=== PATIENT | male | born 1940 | race Caucasian/White ===

== ENCOUNTER 2023-04-02 14:00 | Emergency (ER) | payer OTHER ==
[2023-04-02] MEDS ORDERED: Ondansetron 4 MG/2 ML SDV IVPUSH ONE (15:08)
[2023-04-02] MEDS ORDERED: HYDROmorphone 0.5 MG/0.5 ML Syringe IVPUSH ONE ×2 (15:08→21:44)
[2023-04-02] MEDS ORDERED: Sodium Chloride 0.9% 1,000 ML IV ONE (15:08)
[2023-04-02 16:17] LABS: BASOPHILS PERCENT AUTO 0.2 % (0.0-1.0); HEMATOCRIT 40.4 % (42.0-52.0); HEMOGLOBIN 13.5 gm/dl (14.0-18.0); IMMATURE GRAN ABSOLUTE AUTO 0.12 K/mm3 (0.00-0.05); IMMATURE GRAN PERCENT AUTO 0.6 % (0.0-0.4); LYMPHOCYTES ABSOLUTE AUTO 0.7 K/mm3 (1.0-4.8); LYMPHOCYTES PERCENT AUTO 3.4 % (24.0-44.0); MEAN CORPUSCULAR HEMOGLOBIN 29.2 pg (28.0-32.0); MEAN CORPUSCULAR HGB CONC 33.4 g/dl (32.0-36.0); MEAN CORPUSCULAR VOLUME 87.3 fl (83.0-99.0); MEAN PLATELET VOLUME 10.9 fl (9.4-12.4); MONOCYTES ABSOLUTE AUTO 1.1 K/mm3 (0.0-0.8); MONOCYTES PERCENT AUTO 5.5 % (0.0-8.0); NEUTROPHILS ABSOLUTE AUTO 18.1 K/mm3 (1.8-7.7); NEUTROPHILS PERCENT AUTO 90.3 % (41.0-71.0); PLATELET COUNT,PLT 208 K/mm3 (150-400); RED BLOOD CELL COUNT 4.63 M/mm3 (4.52-5.90); WHITE BLOOD CELL COUNT,WBC 20.01 K/mm3 (3.9-11.3)
[2023-04-02 16:39] LABS: A/G RATIO 0.9 (1-2); ALBUMIN 3.6 g/dl (3.4-5.0); ANION GAP 19.3 (5-15); BUN/CREATININE RATIO 18.3 (14-18); C-REACTIVE PROTEIN 1.7 mg/dL (<1.0); CALCIUM 9.2 mg/dL (8.5-10.1); CREATININE 1.8 mg/dL (0.7-1.3); EST CRCL DRUG DOSING (CG) 30.61 mL/min; POTASSIUM,K 4.3 mEq/L (3.5-5.1); PROTEIN TOTAL,TP 7.5 g/dl (6.4-8.2)
[2023-04-02 18:08] LABS: APPEARANCE,URINE SLT CLOUDY (Clear); BILIRUBIN,URINE NEGATIVE (Negative); COLOR,URINE YELLOW (Yellow); GLUCOSE,URINE NEGATIVE (Negative); KETONES,URINE NEGATIVE (Negative); LEUKOCYTE ESTERASE,URINE TRACE (Negative); NITRITE,URINE NEGATIVE (Negative); OCCULT BLOOD,URINE 1+ (Negative); PROTEIN,URINE 3+ (Negative); UROBILINOGEN,URINE 0.2 (0.2-1.0)
[2023-04-02 18:15] LABS: WBC,URINE 20-30 /hpf (0-5)
[2023-04-02 18:16] LABS: BACTERIA,URINE MANY /hpf (FEW); MUCUS,URINE FEW /hpf (FEW)
[2023-04-02] MEDS ORDERED: Iopamidol 612 MG/ML 100 ML Bottle IVPUSH ONE (20:47)
[2023-04-02] MEDS ORDERED: Sodium Chloride 0.9% 10 ML Syringe FLUSH ONE (20:47)
== END 2023-04-02 22:30 ==
LOC: JD.ED 14:00
DX: N20.2 Calculus of kidney with calculus of ureter (principal); I10 Essential (primary) hypertension; E78.00 Pure hypercholesterolemia, unspecified; M10.9 Gout, unspecified; E11.9 Type 2 diabetes mellitus without complications; E03.9 Hypothyroidism, unspecified; Z79.899 Other long term (current) drug therapy; Z79.82 Long term (current) use of aspirin
CPT/HCPCS: 36415; 74177; 80053; 81001; 85025; 86140; 87086; 87088; 87186; 96361; 96374; 96375; 96376; 99285; J1170; J2405; J7030

== ENCOUNTER 2024-09-01 12:30 | Inpatient (IN) | payer MEDICARE, OTHER ==
[2024-09-01] MEDS ORDERED: Sodium Chloride 0.9% 10 ML Syringe FLUSH PRN (13:02)
[2024-09-01 14:13] LABS: HEMATOCRIT 43.7 % (42.0-52.0); HEMOGLOBIN 14.5 gm/dl (14.0-18.0); MEAN CORPUSCULAR HGB CONC 33.2 g/dl (32.0-36.0); MEAN PLATELET VOLUME 11.9 fl (9.4-12.4); RED BLOOD CELL COUNT 4.84 M/mm3 (4.52-5.90); WHITE BLOOD CELL COUNT,WBC 13.15 K/mm3 (3.9-11.3)
[2024-09-01 14:14] LABS: MEAN CORPUSCULAR VOLUME 90.3 fl (83.0-99.0); PLATELET COUNT,PLT 296 K/mm3 (150-400)
[2024-09-01] MEDS: HYDROmorphone 0.5 MG/0.5 ML Syringe IVPUSH ONE ×3 (14:34→16:46)
[2024-09-01 14:36] LABS: INR 2.22; PROTHROMBIN TIME 22.3 SECONDS (9.7-12.0)
[2024-09-01 14:39] LABS: A/G RATIO 0.8 (1-2); ALANINE AMINOTRANSFERASE,ALT 19 U/L (16-63); ALBUMIN 2.9 g/dl (3.4-5.0); ALKALINE PHOSPHATASE 112 U/L (46-116); ANION GAP 21.1 (5-15); ASPARTATE AMNIOTRANSFERASE,AST 20 U/L (15-37); BAND PERCENT MAN 0 % (0-10); BASOPHILS PERCENT MAN 0 (0.2-1.2); BILIRUBIN TOTAL 0.3 mg/dL (0.2-1.0); BLOOD UREA NITROGEN,BUN 133 mg/dL (7-18); BUN/CREATININE RATIO 44.3 (14-18); C-REACTIVE PROTEIN 1.39 mg/dL (<0.30); CALCIUM 8.9 mg/dL (8.5-10.1); CARBON DIOXIDE,CO2 17 mEq/L (21-32); CHLORIDE,CL 107 mEq/L (98-107); EOSINOPHILS PERCENT MAN 1 % (0.8-7.0); ESTIMATED GFR 20 mL/min (>60); GLUCOSE RANDOM 109 mg/dL (70-99); LYMPHOCYTES % ATYPICAL MANUAL 0 %; LYMPHOCYTES PERCENT MAN 15 % (20-40); MONOCYTES PERCENT MAN 8 % (2-10); POTASSIUM,K 4.1 mEq/L (3.5-5.1); PROTEIN TOTAL,TP 6.7 g/dl (6.4-8.2); SODIUM,NA 141 mEq/L (136-145); URIC ACID 13.6 mg/dL (3.5-7.2)
[2024-09-01 14:40] LABS: LACTIC ACID 1.2 mmol/L (0.4-2.0); PLATELET COUNT ESTIMATE ADEQUATE
[2024-09-01] MEDS: Lactated Ringers 1,000 ML IV ONE (15:41)
[2024-09-01 15:43] LABS: APPEARANCE,URINE CLEAR (Clear); BILIRUBIN,URINE 1+ (Negative); COLOR,URINE YELLOW (Yellow); GLUCOSE,URINE NEGATIVE (Negative); KETONES,URINE NEGATIVE (Negative); LEUKOCYTE ESTERASE,URINE TRACE (Negative); NITRITE,URINE NEGATIVE (Negative); OCCULT BLOOD,URINE NEGATIVE (Negative); PH,URINE 5.5 (5.0-8.0); PROTEIN,URINE 1+ (Negative); UROBILINOGEN,URINE 0.2 (0.2-1.0)
[2024-09-01 15:53] LABS: BACTERIA,URINE MANY /hpf (FEW); MUCUS,URINE FEW /hpf (FEW); RBC,URINE 0-5 /hpf (0-5); SQUAMOUS EPITHELIAL CELLS,UR 0-5 /hpf (0-5); WBC,URINE 0-5 /hpf (0-5)
[2024-09-01] MEDS: fentaNYL 100 MCG/2 ML SDV IVPUSH ONE (18:48)
[2024-09-01] MEDS ORDERED: Ondansetron 4 MG Tab.DIS PO PRN (20:09)
[2024-09-01] MEDS ORDERED: Morphine 2 MG/ML SYRINGE IVPUSH PRN (20:09)
[2024-09-01] MEDS ORDERED: Sennosides/Docusate Sodium 50-8.6 MG Tab PO PRN (20:09)
[2024-09-01] MEDS ORDERED: Naloxone 0.4 MG/ML SDV IVPUSH PRN (20:09)
[2024-09-01] MEDS ORDERED: 50% Dextrose in Water 50 ML Syringe IVPUSH PRN (20:14)
[2024-09-01] MEDS: Heparin Sodium 5,000 Units/ML Vial SUBCUT SCH (20:46)
[2024-09-01] MEDS: Lactated Ringers 1,000 ML IV SCH (20:46)
[2024-09-01] MEDS: oxyCODONE 5 MG Tab PO PRN (22:41)
[2024-09-01] MEDS: atorvaSTATin 20 MG Tab PO SCH (22:44)
[2024-09-01] MEDS: fentaNYL 12 MCG/HR Transdermal Patch TRDERM SCH (22:50)
[2024-09-01] MEDS: Triamcinolone Acetonide 0.1% Crm 15 GM Tube TOP SCH (23:44)
[2024-09-01] MEDS: Insulin Lispro 100 Unit/ML 3 ML KwikPen SUBCUT SCH (23:45)
[2024-09-02] MEDS: Levothyroxine 50 MCG Tab PO SCH (04:52)
[2024-09-02 05:57] LABS: BASOPHILS PERCENT AUTO 0.4 % (0.0-1.0); EOSINOPHILS ABSOLUTE AUTO 0.2 K/mm3 (0.0-0.4); EOSINOPHILS PERCENT AUTO 2.1 % (0.0-6.0); HEMATOCRIT 40.2 % (42.0-52.0); HEMOGLOBIN 13.5 gm/dl (14.0-18.0); IMMATURE GRAN ABSOLUTE AUTO 0.04 K/mm3 (0.00-0.05); IMMATURE GRAN PERCENT AUTO 0.4 % (0.0-0.4); LYMPHOCYTES ABSOLUTE AUTO 1.6 K/mm3 (1.0-4.8); MEAN CORPUSCULAR HEMOGLOBIN 30.4 pg (28.0-32.0); MEAN CORPUSCULAR HGB CONC 33.6 g/dl (32.0-36.0); MEAN CORPUSCULAR VOLUME 90.5 fl (83.0-99.0); MEAN PLATELET VOLUME 12.4 fl (9.4-12.4); MONOCYTES ABSOLUTE AUTO 0.7 K/mm3 (0.0-0.8); MONOCYTES PERCENT AUTO 8.1 % (0.0-8.0); NEUTROPHILS ABSOLUTE AUTO 6.5 K/mm3 (1.8-7.7); RED BLOOD CELL COUNT 4.44 M/mm3 (4.52-5.90); WHITE BLOOD CELL COUNT,WBC 9.13 K/mm3 (3.9-11.3)
[2024-09-02 06:03] LABS: PLATELET COUNT,PLT 199 K/mm3 (150-400)
[2024-09-02 07:01] LABS: A/G RATIO 0.7 (1-2); ALBUMIN 2.5 g/dl (3.4-5.0); BILIRUBIN TOTAL 0.4 mg/dL (0.2-1.0); BUN/CREATININE RATIO 53.8 (14-18); C-REACTIVE PROTEIN 1.12 mg/dL (<0.30); CALCIUM 8.8 mg/dL (8.5-10.1); CREATININE 2.1 mg/dL (0.7-1.3); EST CRCL DRUG DOSING (CG) 26.65 mL/min; MAGNESIUM 1.8 mg/dL (1.8-2.4); PHOSPHORUS 3.3 mg/dL (2.6-4.7); PROTEIN TOTAL,TP 5.9 g/dl (6.4-8.2)
[2024-09-02] MEDS: Folic Acid 1 MG Tab PO SCH (08:45)
[2024-09-02] MEDS: Sertraline 50 MG Tab PO SCH (08:45)
[2024-09-02] MEDS: Aspirin 81 MG Tab.EC PO SCH (08:45)
[2024-09-02] MEDS: Isosorbide Mononitrate 30 MG Tab.ER PO SCH (08:45)
[2024-09-02] MEDS: Cholecalciferol (Vitamin D3) 25 MCG Tab PO SCH (08:45)
[2024-09-02] MEDS: Ferrous Sulfate 324 MG Tab.EC PO SCH (08:45)
[2024-09-02] MEDS: Empagliflozin 10 MG Tab PO SCH (08:45)
[2024-09-02] MEDS ORDERED: Morphine 2 MG/ML SYRINGE IVPUSH PRN (09:15)
[2024-09-02] MEDS ORDERED: Labetalol 100 MG/20 ML MDV IVPUSH PRN (09:30)
[2024-09-02] MEDS: Acetaminophen 325 MG Tab PO PRN (09:30)
[2024-09-02] MEDS ORDERED: hydrALAZINE 20 MG/ML SDV IVPUSH PRN (09:30)
[2024-09-02] MEDS: Magnesium Sulfat/D5W 1GM/100ML 1 GM in Premix Bag 1 BAG IV ONE (09:42)
[2024-09-02] MEDS: predniSONE 10 MG Tab PO ONE (09:43)
[2024-09-02 09:58] LABS: TSH 2.132 uIU/mL (0.358-3.74)
[2024-09-02] MEDS: Dextrose 5%-0.45% NaCl 1,000 ML IV SCH (10:54)
[2024-09-02] MEDS: Doxycycline Monohydrate 100 MG Cap PO SCH (11:00)
[2024-09-02] MEDS: Amoxicillin/Clavulanate K 500-125 MG Tab PO SCH (11:00)
[2024-09-02] MEDS: Melatonin 3 MG Tab PO PRN (20:03)
[2024-09-03 05:27] LABS: BASOPHILS PERCENT AUTO 0.2 % (0.0-1.0); EOSINOPHILS PERCENT AUTO 0.1 % (0.0-6.0); HEMATOCRIT 40.4 % (42.0-52.0); HEMOGLOBIN 13.6 gm/dl (14.0-18.0); IMMATURE GRAN ABSOLUTE AUTO 0.07 K/mm3 (0.00-0.05); IMMATURE GRAN PERCENT AUTO 0.7 % (0.0-0.4); LYMPHOCYTES PERCENT AUTO 9.9 % (24.0-44.0); MEAN CORPUSCULAR HEMOGLOBIN 30.3 pg (28.0-32.0); MEAN CORPUSCULAR HGB CONC 33.7 g/dl (32.0-36.0); MEAN PLATELET VOLUME 11.5 fl (9.4-12.4); MONOCYTES ABSOLUTE AUTO 0.8 K/mm3 (0.0-0.8); MONOCYTES PERCENT AUTO 7.9 % (0.0-8.0); NEUTROPHILS PERCENT AUTO 81.2 % (41.0-71.0); PLATELET COUNT,PLT 213 K/mm3 (150-400); RED BLOOD CELL COUNT 4.49 M/mm3 (4.52-5.90); WHITE BLOOD CELL COUNT,WBC 9.86 K/mm3 (3.9-11.3)
[2024-09-03 05:48] LABS: ANION GAP 15.8 (5-15); BUN/CREATININE RATIO 52.9 (14-18); C-REACTIVE PROTEIN 1.44 mg/dL (<0.30); CALCIUM 9.1 mg/dL (8.5-10.1); CREATININE 1.4 mg/dL (0.7-1.3); EST CRCL DRUG DOSING (CG) 39.98 mL/min; MAGNESIUM 1.9 mg/dL (1.8-2.4); POTASSIUM,K 3.8 mEq/L (3.5-5.1)
[2024-09-03] MEDS: predniSONE 20 MG Tab PO SCH (09:08)
[2024-09-03] MEDS: Magnesium Sulfat/D5W 1GM/100ML 1 GM in Premix Bag 1 BAG IV ONE (11:39)
[2024-09-03] MEDS: D5 1/2 NS w/ 20 mEq/L KCl 1,000 ML IV SCH (13:00)
[2024-09-03] MEDS: Amoxicillin/Clavulanate K 875-125 MG Tab PO SCH (20:05)
[2024-09-04 09:42] LABS: BASOPHILS PERCENT AUTO 0.1 % (0.0-1.0); EOSINOPHILS PERCENT AUTO 0.5 % (0.0-6.0); HEMATOCRIT 40.6 % (42.0-52.0); HEMOGLOBIN 13.7 gm/dl (14.0-18.0); IMMATURE GRAN ABSOLUTE AUTO 0.12 K/mm3 (0.00-0.05); IMMATURE GRAN PERCENT AUTO 1.4 % (0.0-0.4); LYMPHOCYTES ABSOLUTE AUTO 0.7 K/mm3 (1.0-4.8); LYMPHOCYTES PERCENT AUTO 8.3 % (24.0-44.0); MEAN CORPUSCULAR HEMOGLOBIN 30.3 pg (28.0-32.0); MEAN CORPUSCULAR HGB CONC 33.7 g/dl (32.0-36.0); MEAN CORPUSCULAR VOLUME 89.8 fl (83.0-99.0); MEAN PLATELET VOLUME 11.2 fl (9.4-12.4); MONOCYTES ABSOLUTE AUTO 0.3 K/mm3 (0.0-0.8); MONOCYTES PERCENT AUTO 3.6 % (0.0-8.0); NEUTROPHILS ABSOLUTE AUTO 7.5 K/mm3 (1.8-7.7); NEUTROPHILS PERCENT AUTO 86.1 % (41.0-71.0); PLATELET COUNT,PLT 172 K/mm3 (150-400); RED BLOOD CELL COUNT 4.52 M/mm3 (4.52-5.90); WHITE BLOOD CELL COUNT,WBC 8.72 K/mm3 (3.9-11.3)
[2024-09-04] MEDS: Enoxaparin 40 MG/0.4 ML Syringe SUBCUT SCH (10:01)
[2024-09-04 10:16] LABS: A/G RATIO 0.8 (1-2); ALBUMIN 2.8 g/dl (3.4-5.0); ANION GAP 14.3 (5-15); BILIRUBIN TOTAL 0.5 mg/dL (0.2-1.0); BUN/CREATININE RATIO 36.9 (14-18); C-REACTIVE PROTEIN 0.68 mg/dL (<0.30); CREATININE 1.3 mg/dL (0.7-1.3); EST CRCL DRUG DOSING (CG) 43.05 mL/min; MAGNESIUM 1.9 mg/dL (1.8-2.4); POTASSIUM,K 4.3 mEq/L (3.5-5.1); PROTEIN TOTAL,TP 6.4 g/dl (6.4-8.2)
[2024-09-04] MEDS: Morphine 2 MG/ML SYRINGE IVPUSH ONE (11:00)
[2024-09-04] MEDS: Morphine 2 MG/ML SYRINGE ONE (11:27)
[2024-09-04] MEDS: fentaNYL 25 MCG/HR Transdermal Patch TRDERM SCH (12:58)
[2024-09-04] MEDS: Morphine 2 MG/ML SYRINGE IVPUSH PRN (12:59)
[2024-09-05 04:34] LABS: BASOPHILS PERCENT AUTO 0.3 % (0.0-1.0); EOSINOPHILS ABSOLUTE AUTO 0.1 K/mm3 (0.0-0.4); EOSINOPHILS PERCENT AUTO 0.8 % (0.0-6.0); HEMATOCRIT 39.6 % (42.0-52.0); HEMOGLOBIN 13.1 gm/dl (14.0-18.0); IMMATURE GRAN PERCENT AUTO 1.9 % (0.0-0.4); LYMPHOCYTES ABSOLUTE AUTO 1.9 K/mm3 (1.0-4.8); LYMPHOCYTES PERCENT AUTO 18.8 % (24.0-44.0); MEAN CORPUSCULAR HEMOGLOBIN 30.3 pg (28.0-32.0); MEAN CORPUSCULAR HGB CONC 33.1 g/dl (32.0-36.0); MEAN CORPUSCULAR VOLUME 91.5 fl (83.0-99.0); MEAN PLATELET VOLUME 11.9 fl (9.4-12.4); MONOCYTES ABSOLUTE AUTO 0.7 K/mm3 (0.0-0.8); NEUTROPHILS ABSOLUTE AUTO 7.3 K/mm3 (1.8-7.7); NEUTROPHILS PERCENT AUTO 71.2 % (41.0-71.0); PLATELET COUNT,PLT 173 K/mm3 (150-400); RED BLOOD CELL COUNT 4.33 M/mm3 (4.52-5.90); WHITE BLOOD CELL COUNT,WBC 10.26 K/mm3 (3.9-11.3)
[2024-09-05 04:57] LABS: ANION GAP 12.9 (5-15); BUN/CREATININE RATIO 29.2 (14-18); C-REACTIVE PROTEIN 0.3 mg/dL (<0.30); CALCIUM 8.7 mg/dL (8.5-10.1); CREATININE 1.3 mg/dL (0.7-1.3); EST CRCL DRUG DOSING (CG) 43.05 mL/min; MAGNESIUM 1.7 mg/dL (1.8-2.4); POTASSIUM,K 3.9 mEq/L (3.5-5.1)
[2024-09-05] MEDS: Magnesium Sulf/Wat 2 GM/50 mL 2 GM in Premix Bag 1 BAG IV ONE (08:33)
[2024-09-05] MEDS: Ondansetron 4 MG/2 ML SDV IV PRN (10:38)
[2024-09-06 04:58] LABS: BASOPHILS PERCENT AUTO 0.2 % (0.0-1.0); EOSINOPHILS ABSOLUTE AUTO 0.1 K/mm3 (0.0-0.4); EOSINOPHILS PERCENT AUTO 0.4 % (0.0-6.0); HEMATOCRIT 38.8 % (42.0-52.0); HEMOGLOBIN 12.8 gm/dl (14.0-18.0); IMMATURE GRAN PERCENT AUTO 2.3 % (0.0-0.4); LYMPHOCYTES ABSOLUTE AUTO 1.7 K/mm3 (1.0-4.8); LYMPHOCYTES PERCENT AUTO 13.2 % (24.0-44.0); MEAN CORPUSCULAR HEMOGLOBIN 29.9 pg (28.0-32.0); MEAN CORPUSCULAR VOLUME 90.7 fl (83.0-99.0); MEAN PLATELET VOLUME 11.8 fl (9.4-12.4); MONOCYTES ABSOLUTE AUTO 0.8 K/mm3 (0.0-0.8); MONOCYTES PERCENT AUTO 6.5 % (0.0-8.0); NEUTROPHILS PERCENT AUTO 77.4 % (41.0-71.0); PLATELET COUNT,PLT 166 K/mm3 (150-400); RED BLOOD CELL COUNT 4.28 M/mm3 (4.52-5.90); WHITE BLOOD CELL COUNT,WBC 12.86 K/mm3 (3.9-11.3)
[2024-09-06 05:25] LABS: ANION GAP 13.1 (5-15); BUN/CREATININE RATIO 23.1 (14-18); C-REACTIVE PROTEIN 0.27 mg/dL (<0.30); CALCIUM 8.6 mg/dL (8.5-10.1); CREATININE 1.3 mg/dL (0.7-1.3); EST CRCL DRUG DOSING (CG) 43.05 mL/min; MAGNESIUM 1.9 mg/dL (1.8-2.4); POTASSIUM,K 4.1 mEq/L (3.5-5.1)
== END 2024-09-06 10:15 | DRG 682 ==
LOC: JD.ED 12:30 → JD.MS 16:15
PROVIDERS: ADMIT Student in an Organized Health Care Education/Training Program; ATTEND Family Medicine
DX: M79.674 Pain in right toe(s) (principal); N17.9 Acute kidney failure, unspecified; R53.1 Weakness; G93.41 Metabolic encephalopathy; G81.94 Hemiplegia, unspecified affecting left nondominant side; L03.116 Cellulitis of left lower limb; M19.90 Unspecified osteoarthritis, unspecified site; M62.82 Rhabdomyolysis; E11.9 Type 2 diabetes mellitus without complications; G93.49 Other encephalopathy; Z79.82 Long term (current) use of aspirin; Z79.890 Hormone replacement therapy; Z66 Do not resuscitate; H91.90 Unspecified hearing loss, unspecified ear; H54.7 Unspecified visual loss; E78.00 Pure hypercholesterolemia, unspecified; I10 Essential (primary) hypertension; I25.2 Old myocardial infarction; M10.9 Gout, unspecified; E03.9 Hypothyroidism, unspecified; E86.0 Dehydration; M54.50 Low back pain, unspecified; F41.9 Anxiety disorder, unspecified; F32.A Depression, unspecified; L03.032 Cellulitis of left toe; N20.0 Calculus of kidney; K80.20 Calculus of gallbladder without cholecystitis without obstruction; M15.0 Primary generalized (osteo)arthritis; E11.40 Type 2 diabetes mellitus with diabetic neuropathy, unspecified; Z79.4 Long term (current) use of insulin; Z22.322 Carrier or suspected carrier of Methicillin resistant Staphylococcus aureus; Z79.899 Other long term (current) drug therapy; Z87.820 Personal history of traumatic brain injury; Z86.16 Personal history of COVID-19; Z99.3 Dependence on wheelchair
CPT/HCPCS: 36415; 70450; 71045; 73630; 74176; 80053; 81001; 83605; 84550; 85007; 85027; 85610; 85652; 86140; 87040 ×2; 87428; 96361; 96374; 96376; 99285; C1758; J7120; 72148; 72148-26; 80048; 82947; 83735; 84100; 84443; 85025; 87641; 97110-GP; 97162-GP; 97530-GP; 99223; 99233; 99239; 99284; A9270-GY; J1644; J1650; J1815; J2270; J2405; J3475; J3480; J7512; J7799